=== PATIENT | female | born 1950 | race Caucasian/White ===

== ENCOUNTER 2024-06-25 14:32 | Outpatient (OUT) | payer MEDICARE, OTHER, SELFPAY ==
--- NOTE | 2024-06-25 14:49 | MM_ITS ---
Patient Name: ADAN MATA MR#: [id number] : 1950 Exam Date: 06/25/2024 Ordering Doctor: DR. GADIEL BRITO RADIOLOGY REPORT PROCEDURE: MM TOMOSYNTHESIS SCREENING BI COMPARISON: MG MAMM SCREEN 3D JEREMY CAD, 06/28/2022. MG MAMM SCREEN JEREMY W CAD, 08/20/2020. INDICATIONS: Screening Calculator Name NCI Breast Cancer Risk Assessment Tool 5 Year Breast Cancer Risk 2.40% Lifetime Breast Cancer Risk 6.10% Personal Breast Cancer No Personal Ovarian Cancer No Treatments None Family Cancers None LOCATION: [facility] BREAST COMPOSITION: There are scattered areas of fibroglandular density. FINDINGS: DIAGNOSTIC CATEGORY 2--BENIGN FINDING. NO CHANGE FROM COMPARISON. Scattered benign-appearing calcifications are present. RIGHT BREAST: No significant suspicious finding. LEFT BREAST: No significant suspicious finding. RECOMMENDATIONS: ROUTINE MAMMOGRAM AND CLINICAL EVALUATION IN 12 MONTHS. PLEASE NOTE: A NORMAL MAMMOGRAM DOES NOT EXCLUDE THE POSSIBILITY OF BREAST CANCER. A CLINICALLY SUSPICIOUS PALPABLE LUMP SHOULD BE BIOPSIED. Dictated by: Imtiaz Morales MD on 06/25/2024 at 15:58 Approved by: Imtiaz Morales MD on 06/25/2024 at 15:59
--- NOTE | 2024-06-25 14:49 | XR_ITS ---
The [address] [address] Patient Name: ADAN MATA MRN: [id number] date: 1950 Sex: F Assigned Patient Location: [facility] Current Patient Location: Accession/Order Number: [id number] Exam Date: 06/25/2024 15:28 Report Date: 06/27/2024 07:32 At the request of: GADIEL BRITO Procedure: XR DEXA axial skeleton EXAMINATION: XR DEXA axial skeleton, 06/25/2024 3:28 PM EDT HISTORY: Asymptomatic Menopause COMPARISON: 2018, 2016 TECHNIQUE: Dual-energy X-ray absorptiometry (DEXA) bone density study performed for the axial skeleton. FINDINGS: Bone density of the AP spine L1-L4 measures 1.232 g/sq cm. T score 0.4. Normal. Lowest bone density left femoral trochanter measuring 0.538 g/sq cm for T score -2.7. Osteoporosis XR/XR DEXA axial skeleton IMPRESSION: Osteoporosis. High fracture risk Pharmacologic treatment recommendations * No uniform recommendation applies to all patients. Management plans must be individualized. * Consider initiating pharmacologic treatment in postmenopausal women and men >= 50 years of age who have the following: Primary fracture prevention: * T-score <= - 2.5 at the femoral neck, total hip, lumbar spine, 33% radius (some uncertainty with existing data) by DXA. * Low bone mass (osteopenia: T-score between - 1.0 and - 2.5) at the femoral neck or total hip by DXA with a 10-year hip fracture risk >= 3% or a 10-year major osteoporosis-related fracture risk >= 20% (i.e., clinical vertebral, hip, forearm, or proximal humerus) based on the [place]-adapted FRAXregistered model. Secondary fracture prevention: * Fracture of the hip or vertebra regardless of BMD [4, 5]. * Fracture of proximal humerus, pelvis, or distal forearm in persons with low bone mass (osteopenia: T-score between - 1.0 and - 2.5). The decision to treat should be individualized in persons with a fracture of the proximal humerus, pelvis, or distal forearm who do not have osteopenia or low BMD [12, 13]. Carlos RICHARDSON, Joseph SY, Dontae KL, Tayo EM, Nella KG, AJ, Claudette ES. The clinician's guide to prevention and treatment of osteoporosis. Osteoporos Int. 2021;33(10):7068-0246. doi: 10.1007/i66237-698-95264-g. Epub 2021Jan 06. Erratum in: Osteoporos Int. 2021Apr 07;: PMID: [id number]; PMCID: [id number]. Electronically authenticated by: MIRIAM PADILLA Date: 06/27/2024 07:32
== END 2024-06-25 14:33 | disposition home or self-care (01) ==
PROVIDERS: PCP Family Medicine; Visit Provider Family Medicine
DX: Z00.00 Encounter for general adult medical examination without abnormal findings (principal); Z09 Encounter for follow-up examination after completed treatment for conditions other than malignant neoplasm; Z12.31 Encounter for screening mammogram for malignant neoplasm of breast; Z78.0 Asymptomatic menopausal state; M81.0 Age-related osteoporosis without current pathological fracture
CPT/HCPCS: 77063; 77067; 77080